=== PATIENT | female | born 1980 | race Caucasian/White ===

== ENCOUNTER 2020-08-17 08:28 | Outpatient (CLI) | payer BC, OTHER, SELFPAY ==
--- NOTE | ~2020-08-17 | US_ITS ---
EXAMINATION: US pelvic complete w TV EXAM DATE: 08/17/2020 09:13 INDICATION: Fibroids. TECHNIQUE: Pelvic transabdominal and transvaginal sonogram was performed. There are multiple graysca le and Doppler images available for interpretation. There is no prior study for comparison. FINDINGS: Uterus measures 9.9 x 7.8 x 5.1 cm, and is morphologically normal. Endometrial stripe maya sures 13 mm, within normal limits. There is no free pelvic fluid. Right adnexa: The ovary is not identified. There is no adnexal mass. Left adnexa: The ovary measures 2.2 x 2.5 x 3.0 cm and is morphologically normal. Ovarian vascular fl ow confirmed. IMPRESSION: 1. Unremarkable pelvic ultrasound exam. Reviewed, dictated and finalized at location A. T [employer]
== END 2020-08-17 08:29 | disposition home or self-care (01) ==
LOC: ANHIMG 08:35
PROVIDERS: Visit Provider Obstetrics & Gynecology Gynecology
DX: D25.9 Leiomyoma of uterus, unspecified (principal)
CPT/HCPCS: 76830; 76856

== ENCOUNTER 2021-02-20 10:09 | Emergency (ER) | payer BC, OTHER, SELFPAY ==
--- NOTE | ~2021-02-20 | CT_ITS ---
EXAMINATION: CT abdomen pelvis wo con DATE: 02/20/2021 12:07 INDICATION: Right flank pain, dysuria, nausea and vomiting. TECHNIQUE: Computed tomography (CT) of the abdomen and pelvis was performed without intravenous contr ast. Automated exposure control and iterative reconstruction technique were employed. The dose-length product was 194.11 mGy-cm. COMPARISON: None FINDINGS: Lung bases are clear. Heart size is normal. No pericardial or pleural effusion. 9 mm hepatic cyst. Mu ltiple centrally fat attenuation gallstones within the normal gallbladder with no gallbladder wall th ickening, dilation or pericholecystic inflammatory stranding to suggest acute cholecystitis. Spleen, pancreas and bilateral adrenal glands are normal. 2-3 mm at least partially obstructing stone at the right ureterovesicular junction with mild right hydroureter but no hydronephrosis. Left kidney and ur eter are normal. No other urolithiasis. There is mild colonic diverticulosis with a sigmoid predomina nce. There is no adjacent inflammatory change to suggest diverticulitis. Small bowel and appendix ar e normal. Bladder, anteverted uterus and bilateral adnexa are normal. No free intraperitoneal gas or fluid. No pathologically enlarged abdominal or pelvic lymphadenopathy. Mild thoracolumbar dextrocurva ture. IMPRESSION: 1. 2-3 mm stone at the right ureterovesicular junction with mild right hydroureter but without hydron ephrosis. 2. Cholelithiasis. 3. Mild diverticulosis. Reviewed, dictated and finalized at location A. IMPRESSION: 1. 2-3 mm stone at the right ureterovesicular junction with mild right hydroure ter but without hydronephrosis. 2. Cholelithiasis. 3. Mild diverticulosis.
[2021-02-20 10:22] VITALS: BP 111/82; PULSE 84; RESP 18; TEMP 36.2; O2SAT 100
[2021-02-20 11:27] LABS: Add Urine Microscopic? YES; Appearance Urine Clear (Clear); Bilirubin Urine Negative (Negative); Blood Urine 2+ (Negative); Color Urine Yellow (Yellow); Glucose Urine UA Negative (Negative); Ketones Urine Trace mg/dL (Negative); Leukocyte Esterase Ur Negative LEU/UL (Negative); Mucus Urine Moderate /lpf; Nitrate Urine Negative (Negative); Protein Urine Negative (Negative); Specific Grav Ur 1.009 (1.001-1.035); Squamous Epithelial Cell Urine Few /hpf (Few); Urobilinogen Urine Negative mg/dL (<2.0); WBC Urine 0-3 /hpf
[2021-02-20 12:31] LABS: Basophils Percent Auto 0.4 % (0.2-1.2); Eosinophils Percent Auto 0.4 % (0-4.4); Hematocrit 28.9 % (37.0-47.0); Hemoglobin 8.8 g/dL (12.0-15.0); Immature Granulocyte Absolute 0.03 K/mm3 (0.00-0.031); Immature Granulocyte Percent A 0.4 % (0-0.5); Lymphocytes Absolute Auto 1.58 K/mm3 (0.9-3.2); Lymphocytes Percent Auto 18.4 % (18.3-44.2); Mean Corpuscular HGB Conc 30.4 g/dl (32-36); Mean Corpuscular Hemoglobin 22.3 pg (26-34); Mean Corpuscular Volume 73.4 fl (80-100); Mean Platelet Volume 9.9 fl (7.4-10.4); Monocytes Absolute Auto 0.4 K/mm3 (0.1-0.6); Monocytes Percent Auto 4.9 % (2.6-8.5); Neutrophils Absolute Auto 6.5 K/mm3 (1.3-6.7); Neutrophils Percent Auto 75.5 % (45.5-73.1); Platelet Count Result 274 k/mm3 (150-375); Red Blood Count 3.94 M/mm3 (4.2-5.4); Red Cell Distribution Width 17.2 % (11.5-14.5); White Blood Count 8.6 K/mm3 (4.5-10.0)
[2021-02-20 12:35] LABS: Anion Gap 9 mmol/L (8-16); Blood Urea Nitrogen 10 mg/dL (7-17); Calcium 9.4 mg/dL (8.4-10.2); Carbon Dioxide 28 mmol/L (22-30); Chloride 102 mmol/L (98-107); Estimated CRCL calculation 82 ml/min; Estimated Glomerular Filt Rate > 60; Glucose 98 mg/dL (65-105); Potassium 3.3 mmol/L (3.4-5.0); Sodium 139 mmol/L (137-145)
--- NOTE | 2021-02-20 13:59 | ED.BACK ---
HPI - Back Pain/Injury General Chief Complaint: Back Pain/Injury Stated Complaint: back pain Time Seen by Provider: 02/20/21 11:08 Source: patient Mode of arrival: ambulatory Limitations: no limitations History of Present Illness HPI Narrative: Patient is a 40-year-old female who presents complaining of right flank pain with nausea and vomiting x1 this a.m. Patient reports difficulty urinating. She denies fever. Patient reports as of arrival to ER, nausea and pain have decreased at this time. Patient denies taking [id number]-pydhter medications prior to arrival. Patient denies history of kidney stones. MD elicited complaint: other (Right flank pain) Related Data Allergies Allergy/AdvReac Type Severity Reaction Status Date / Time metoclopramide Allergy Severe muscle Unverified 12/12/08 13:52 spasm - jaw prochlorperazine Allergy Severe muscle Unverified 12/12/08 13:52 spasm - jaw promethazine Allergy Severe muscle Unverified 12/12/08 13:52 spasm - jaw Cephalosporins Allergy Mild rash Unverified 12/12/08 13:52 Review of Systems Review of Systems: Narrative: CONSTITUTIONAL: Denies fever, chills, or sweats. EYES: Denies visual changes, redness, or discharge. ENT: Denies rhinorrhea, congestion, sore throat, or otalgia. CARDIOVASCULAR: Denies chest pain, palpitations, or edema. RESPIRATORY: Denies cough or dyspnea. GASTROINTESTINAL: Denies abdominal pain, nausea, vomiting, or diarrhea. GENITOURINARY: Denies dysuria or hematuria. Reports right flank pain SKIN: Denies rash or itching. MUSCULOSKELETAL: Denies back pain, joint pain, or myalgia. NEUROLOGIC: Denies headache, numbness, dizziness, or weakness. PSYCHIATRIC: Denies anxiety or depression. PMFSH Social History Social History (Updated 02/20/21 @ 14:02 by RAZ Sorensen) Smoking status: Never smoker Alcohol intake: current Alcohol use details: Occasional Substance use: never Living arrangements: with family Comments At the time of signature, I have reviewed and agree with nursing past medical, surgical, social, and family history unless otherwise noted. Please see nursing chart for further information. There is no relevant family history pertinent to the presenting complaint. Exam Narrative: Exam Narrative: GENERAL: Well-appearing, well-nourished, and in no acute distress. HEAD: Normocephalic, atraumatic. EYES: EOMI. No redness or drainage. Conjunctiva are normal. ENT: Mucous membranes pink and moist. CHEST: No respiratory distress. Clear to auscultation. HEART: Regular rate and rhythm. GI: Soft, nontender without rebound, or guarding. No distention. Bowel sounds normal in all quadrants. MUSCULOSKELETAL: No bony tenderness. EXTREMITIES: Normal range of motion. No edema. SKIN: Warm, dry, no rash. NEURO: No focal deficits. Alert and oriented x3. Gait steady. PSYCH: Normal affect. No signs of depression or anxiety. Course Vital Signs Vital signs: Vital Signs Temperature 36.2 C L 02/20/21 10:22 Pulse Rate 84 02/20/21 10:22 Respiratory Rate 18 02/20/21 10:22 Blood Pressure 111/82 02/20/21 10:22 Pulse Oximetry 100 02/20/21 10:22 Temperature 36.2 C L 02/20/21 10:22 Pulse Rate 80 02/20/21 14:49 Respiratory Rate 18 02/20/21 14:49 Blood Pressure 138/68 02/20/21 14:49 Pulse Oximetry 99 02/20/21 14:49 Reviewed MDM - Back Pain/Injury MDM Narrative Medical decision making narrative: Patient has 2 to 3 mm partially obstructing stone at the right ureter. Discussed with patient her hematocrit and hemoglobin, which she reports that she is aware and has had in the past. Patient to be sent with prescription for pain medication, antinausea medication as well as Flomax and follow-up with urology. Discussed the importance of following up with PCP for repeat labs. Patient agrees with plan of care. Patient stable for discharge home with outpatient follow-up. Differential Diagnosis Differential diagnosi
[2021-02-20 14:49] VITALS: BP 138/68; PULSE 80; RESP 18; O2SAT 99
== END 2021-02-20 14:51 | disposition home or self-care (01) ==
PROVIDERS: Emergency Medicine; Emergency Provider Nurse Practitioner
DX: N20.0 Calculus of kidney (principal)
CPT/HCPCS: 36415; 74176; 80048; 81001; 81025; 85025; 99284

== ENCOUNTER 2021-11-09 09:14 | Emergency (ER) | payer BC, OTHER, SELFPAY ==
--- NOTE | ~2021-11-09 | CT_ITS ---
EXAMINATION: CT cervical spine wo con DATE: 11/09/2021 11:19 INDICATION: Neck pain. TECHNIQUE: Computed tomography (CT) of the cervical spine was performed without intravenous contrast. Automated exposure control and iterative reconstruction technique were employed. The dose-length pro duct was 163.55 mGy-cm. COMPARISON: None FINDINGS: There is 5 degrees dextrocurvature of cervical thoracic spine. There is kyphosis of cervica l spine. Vertebral body heights are normal. There is mildly decreased disc height at C4-C5, C5-C6, an d C6-C7. There is a benign bone island in T1 spinous process. The following disc levels are specifica lly discussed: C2-C3: There is no uncovertebral joint osteoarthritis. There is mild left facet joint osteoarthritis. There is no neural foraminal stenosis. There is no central canal stenosis. C3-C4: There is mild bilateral uncovertebral joint osteoarthritis. There is severe right and moderate left facet joint osteoarthritis. There is no neural foraminal stenosis. There is mild central canal stenosis. C4-C5: There is mild bilateral uncovertebral joint osteoarthritis. There is mild bilateral facet join t osteoarthritis. There is no neural foraminal stenosis. There is mild central canal stenosis. C5-C6: There is severe bilateral uncovertebral joint osteoarthritis. There is mild right facet joint osteoarthritis. There is mild bilateral neural foraminal stenosis. There is mild central canal stenos is. C6-C7: There is moderate right and severe left uncovertebral joint osteoarthritis. There is no facet joint osteoarthritis. There is moderate right and mild left neural foraminal stenosis. There is mild central canal stenosis. C7-T1: There is no uncovertebral joint osteoarthritis. There is mild bilateral facet joint osteoarthr itis. There is no neural foraminal stenosis. There is no central canal stenosis. IMPRESSION: 1. No fracture. 2. Moderate cervical spondylosis. Reviewed, dictated and finalized at location A.
--- NOTE | ~2021-11-09 | CT_ITS ---
EXAMINATION: CT thoracic spine wo con DATE: 11/09/2021 11:19 INDICATION: Back pain. Left arm tingling. TECHNIQUE: Computed tomography (CT) of the thoracic spine was performed without intravenous contrast. Automated exposure control and iterative reconstruction technique were employed. The dose-length pro duct was 666.57 mGy-cm. COMPARISON: None FINDINGS: There is 6 degrees levocurvature of thoracic spine. There is a benign bone island in T1 spi nous process. There is mild chronic anterior wedging of T6 and T7 vertebral bodies. There is mildly d ecreased disc height from T3-T4 through T7-T8. There is multilevel mild facet joint osteoarthritis. T here is mild neural foraminal stenosis on the right at T6-T7 and T7-T8. No central canal stenosis. IMPRESSION: 1. Mild thoracic spondylosis. Reviewed, dictated and finalized at location A.
[2021-11-09 09:20] VITALS: BP 123/87; PULSE 75; RESP 14; TEMP 36.8; O2SAT 100
--- NOTE | 2021-11-09 10:10 | ED.BACK ---
HPI - Back Pain/Injury General Chief Complaint: Back Pain/Injury Stated Complaint: Back pain, arm numbness Time Seen by Provider: 11/09/21 10:10 Source: patient and family Mode of arrival: ambulatory Limitations: no limitations History of Present Illness HPI Narrative: The patient is a 41-year-old female presenting to the emergency department for evaluation of left shoulder pain, tingling sensation in her left thumb, index finger of her left hand. Patient reports that she has had worsening left shoulder pain over the past 3 weeks. She was seen by a chiropractor and had an adjustment, theragun, ultrasound therapy to the left shoulder, without improvement in her symptoms. Patient states she awakened today, actually with worsening pain in the left shoulder that is exacerbated with movement. Pain is sharp, stinging in nature with pain with movement of the neck. Patient reports numbness in the left fingers but states that she has a history of this, has had physical therapy/Occupational Therapy on her left hand in the past. She is left-hand dominant. Patient denies any fever, chills, nausea, vomiting. No frontal chest pain, jaw pain, back pain. No lower extremity weakness or numbness. No facial droop, dysarthria. Patient has been taking Tylenol and ibuprofen without much improvement in her symptoms. Patient does report that she is able to buying agent with her left hand. She states it is slightly weak in pain when compared to her right. She states that there is a tingling sensation but she is able to move all fingers. She denies any wrist or elbow pain. No swelling, bruising, redness in the left arm. No recent fall, trauma otherwise. Patient states that there is a knot in the muscle near to her shoulder which is exactly where her pain is reproducible. Related Data Allergies Allergy/AdvReac Type Severity Reaction Status Date / Time metoclopramide Allergy Severe muscle Verified 07/22/21 10:04 spasm - jaw prochlorperazine Allergy Severe muscle Verified 07/22/21 10:04 spasm - jaw promethazine Allergy Severe muscle Verified 07/22/21 10:04 spasm - jaw Cephalosporins Allergy Mild rash Verified 07/22/21 10:04 Review of Systems Review of Systems: CONSTITUTIONAL: Denies fever, chills, or sweats. EYES: Denies visual changes, redness, or discharge. ENT: Denies rhinorrhea, congestion, sore throat, or otalgia. CARDIOVASCULAR: Denies chest pain, palpitations, or edema. RESPIRATORY: Denies cough or dyspnea. GASTROINTESTINAL: Denies abdominal pain, nausea, vomiting, or diarrhea. GENITOURINARY: Denies dysuria or hematuria. SKIN: Denies rash or itching. MUSCULOSKELETAL: Denies back pain, reports left shoulder pain NEUROLOGIC: Denies headache, reports tingling in her left thumb, second and third digit PSYCHIATRIC: Denies anxiety or depression. FOR[facility], [facility] Past Medical History Medical History ECRB (extensor carpi radialis brevis) tenosynovitis Left elbow pain Surgical History Surgical History History of knee surgery Family History Family History Other Diabetes mellitus Hypertension Social History Social History Alcohol intake: current Alcohol use details: Occasional Substance use: never Exam Narrative: GENERAL: Awake, alert, conversant HEAD: Normocephalic, atraumatic. EYES: PERRLA and EOMI. ENT: Nares clear, no rhinorrhea or epistaxis. Mucous membranes moist. NECK: Supple. CHEST: No respiratory distress, breathing even and non labored HEART: Regular rate, sinus rhythm ABDOMEN:Non distended, non tender EXTREMITIES: Normal range of motion. No edema. Intact sensation overlying the left deltoid. No squaring off of the shoulder. Mild left paracervical tenderness without midline tenderness, no step-offs or deformiti
--- NOTE | 2021-11-09 10:42 | ECG_ITS ---
Measurements Intervals [place] Rate: 66 P: 54 MD: 149 QRS: 17 QRSD: 80 T: 52 QT: 424 QTc: 447 Interpretive Statements SINUS RHYTHM NORMAL EKG NO PREVIOUS ECG AVAILABLE FOR COMPARISON Electronically Signed On 11-09-2021 16:54:15 CDT by Luzmaria Borjas M.D.
[2021-11-09] MEDS: KETOROLAC 15 MG/ML VIAL (*BKC) IV PUSH (10:53)
[2021-11-09] MEDS: diazePAM (*CRX) 2 MG TABLET PO (10:53)
== END 2021-11-09 13:09 | disposition home or self-care (01) ==
PROVIDERS: Emergency Provider Emergency Medicine
DX: S29.012A Strain of muscle and tendon of back wall of thorax, initial encounter (principal); M25.512 Pain in left shoulder; M54.10 Radiculopathy, site unspecified; M47.814 Spondylosis without myelopathy or radiculopathy, thoracic region; M48.02 Spinal stenosis, cervical region; X58.XXXA Exposure to other specified factors, initial encounter
CPT/HCPCS: 72125; 72128; 81025; 93005; 96374; 96375; 99284; A9270; J1100; J1885